=== PATIENT | female | born 1970 ===

== ENCOUNTER 2021-02-09 22:47 | Emergency (ER) | payer SELFPAY ==
[2021-02-10 00:04] LABS: Basophils # (Auto) 0.1 K/mm3 (0.0-0.1); Basophils % (Auto) 0.6 % (0.0-1.8); Eosinophils # (Auto) 0.2 K/mm3 (0.0-0.4); Eosinophils % (Auto) 2.1 % (0.0-4.3); Hematocrit 39.1 % (30.3-42.9); Hemoglobin 13.5 gm/dl (10.1-14.3); Lymphocytes # (Auto) 1.5 K/mm3 (1.2-5.4); Lymphocytes % (Auto) 16.5 % (13.4-35.0); Mean Corpuscular HGB Conc 35 % (30-34); Mean Corpuscular Volume 92 fl (79-97); Monocytes # (Auto) 0.5 K/mm3 (0.0-0.8); Monocytes % (Auto) 5.4 % (0.0-7.3); Platelet Count 163 K/mm3 (140-440); Red Blood Count 4.24 M/mm3 (3.65-5.03)
[2021-02-10 00:27] LABS: Alanine Aminotransferase 16 units/L (7-56); Albumin 4.2 g/dL (3.9-5); BUN/Creatinine Ratio 16; Blood Urea Nitrogen 13 mg/dL (7-17); Calcium 9.5 mg/dL (8.4-10.2); Hemolysis Index 1
[2021-02-10 02:04] LABS: Bacteria,Urine 1+ /HPF (Negative); Bilirubin,Urine NEG (Negative); Blood,Urine SM (Negative); Color,Urine Yellow (Yellow); Protein,Urine <15 mg/dL mg/dL (Negative); Urobilinogen,Urine < 2.0 mg/dL (<2.0)
--- NOTE | 2021-02-10 04:03 | Emergency Department Report ---
ED Abdominal Pain HPI - General Chief Complaint: Nausea/Vomiting/Diarrhea Stated Complaint: DIFF BREATHING Time Seen by Provider: 02/10/21 03:52 Source: patient Mode of arrival: Ambulatory Limitations: Language Barrier - History of Present Illness Initial Comments: Patient is a 51-year-old female who presents emergency room with complaints of shortness of breath, abdominal pain, nausea, vomiting patient states her abdominal pain is a 5 out of 10. Patient states her symptoms started at 10 PM yesterday. Patient states that her symptoms are worsening. Patient states that her abdominal pain started then she had nausea and vomiting and then she became short of breath after vomiting. Patient denies cough. Patient states that her shortness of breath and difficulty breathing have resolved. Patient states she still having abdominal pain and nausea. Patient states her symptoms are better with rest. Patient states her symptoms are worse with exertion and movement. Patient denies fever and chills. Patient denies blood in her vomitus. Patient denies recent travel. Patient denies recent international travel. Patient denies exposure to the novel coronavirus. Patient denies sick contacts. Patient denies fever and chills. Patient denies cough. Patient denies diarrhea. Patient denies coming in contact with anybody with symptoms of the novel coronavirus. Patient's family members at bedside against the patient communicates by sign language. MD Complaint: abdominal pain Location: suprapubic Radiation: none Migration to: no migration Severity scale (0 -10): 5 Quality: stabbing Consistency: constant Improves With: rest Worsens With: movement Associated Symptoms: nausea, vomiting. denies: diarrhea, fever, chills, constipation, dysuria, hematemesis, hematochezia, melena, hematuria, syncope - Related Data Previous Rx's Medication Instructions Recorded Last Taken Type Ciprofloxacin HCl 500 mg PO BID 10 Days #20 tablet 02/10/21 Unknown Rx Ondansetron [Zofran Odt] 4 mg PO Q6HR PRN #20 tab.rapdis 02/10/21 Unknown Rx Allergies Allergy/AdvReac Type Severity Reaction Status Date / Time No Known Allergies Allergy Unverified 02/09/21 23:26 ED Review of Systems ROS: Stated complaint: DIFF BREATHING Other details as noted in HPI Constitutional: denies: chills, fever Eyes: denies: eye pain, eye discharge, vision change ENT: denies: ear pain, throat pain Respiratory: denies: cough, shortness of breath, wheezing Cardiovascular: denies: chest pain, palpitations Endocrine: no symptoms reported Gastrointestinal: as per HPI, abdominal pain, nausea, vomiting. denies: diarrh ea Genitourinary: denies: urgency, dysuria, discharge Musculoskeletal: denies: back pain, joint swelling, arthralgia Skin: denies: rash, lesions Neurological: denies: headache, weakness, paresthesias Psychiatric: denies: anxiety, depression Hematological/Lymphatic: denies: easy bleeding, easy bruising ED Past Medical Hx - Past Medical History Previous Medical History?: Yes Hx Hypertension: Yes Additional medical history: Patient is deaf - Surgical History Past Surgical History?: No - Family History Family history: no significant - Social History Smoking Status: Never Smoker Substance Use Type: None - Medications Home Medications: Home Medications Medication Instructions Recorded Confirmed Last Taken Type Ciprofloxacin HCl 500 mg PO BID 10 Days #20 tablet 02/10/21 Unknown Rx Ondansetron [Zofran Odt] 4 mg PO Q6HR PRN #20 tab.rapdis 02/10/21 Unknown Rx ED Physical Exam - General Limitations: No Limitations General appearance: alert, in no apparent distress - Head Head exam: Present: atraumatic, normocephalic - Eye Eye exam: Present: normal appearance - ENT ENT exam: Present: mucous membranes moist - Neck Neck exam: Present: normal inspection - Respiratory Respiratory exam: Present: normal lung sounds bilaterally. Absent: respiratory distress - Cardiovascular Cardiovascular Exam: Present: regular rate, normal rhythm. Absent: systolic murmur, diastolic murmur, rubs, gallop - GI/Abdominal GI/Abdominal exam: Present: soft, tenderness (Suprapubic tenderness), normal bowel sounds - Rectal Rectal exam: Present: deferred - Extremities Exam Extremities exam: Present: normal inspection - Back Exam Back exam: Present: normal inspection - Neurological Exam Neurological exam: Present: alert, oriented X3 - Psychiatric Psychiatric exam: Present: normal affect, normal mood - Skin Skin exam: Present: warm, dry, intact, normal color. Absent: rash ED Course Vital Signs 02/09/21 02/10/21 23:27 04:04 Temperature 98.3 F Pulse Rate 86 Respiratory 12 16 Rate Blood Pressure 169/94 O2 Sat by Pulse 99 Oximetry - Reevaluation(s) Reevaluation #1: Patient states she is feeling much better. Patient denies nausea vomiting. Patient dates the pain is resolved. Patient denies shortness of breath. I discussed all results and clinical findings with patient. I discussed plan of care with patient. Patient agrees with plan of care. Patient is stable for discharge. Patient will be discharged home. Patient given discharge instructions. Patient voiced understanding of discharge instructions. 02/10/21 05:50 ED Medical Decision Making - Lab Data Result diagrams: 02/09/21 23:31 02/09/21 23:31 - Radiology Data Radiology results: report reviewed CT ABDOMEN AND PELVIS WITHOUT AND WITH CONTRAST INDICATION / CLINICAL INFORMATION: abd pain. TECHNIQUE: Axial CT images were obtained through the abdomen and pelvis before and after 100 cc of Omnipaque [address] scans at this location are performed using CT dose reduction for ALARA by means of automated exposure control. COMPARISON: None available. FINDINGS: LOWER CHEST: There is a 11 mm nodule in the inferior aspect of the left breast LIVER: No significant abnormality. GALLBLADDER: Cholelithiasis BILE DUCTS: No significant abnormality. PANCREAS: No significant abnormality. SPLEEN: No significant abnormality. ADRENALS: No significant abnormality. RIGHT KIDNEY and URETER: No significant abnormality. LEFT KIDNEY and URETER: No significant abnormality. STOMACH and SMALL BOWEL: No significant abnormality. COLON: There are scattered diverticula in the colon APPENDIX: No significant abnormality. PERITONEUM: No free fluid. No free air. No fluid collection. LYMPH NODES: No significant adenopathy. AORTA and ARTERIES: No significant abnormality. IVC and VEINS: No significant abnormality. URINARY BLADDER: No significant abnormality. REPRODUCTIVE ORGANS: No significant abnormality. ADDITIONAL FINDINGS: None. SKELETAL SYSTEM: No acute abnormality IMPRESSION: 1. There is cholelithiasis. 2. Incidental note is made of an 11 mm nodule in the inferior aspect of the left breast. This is indeterminate. There is no record of breast imaging at this institution. In the absence of prior breast imaging, dedicated diagnostic breast imaging is recommended with mammography and ultrasound - Medical Decision Making Patient is a 51-year-old female who presents emergency room for abdominal pain, shortness of breath, nausea, vomiting. Patient shortness of breath resolved prior to coming to the emergency room. Patient chest pain is suprapubic and lower abdomen. Patient had labs done which were essentially unremarkable except for UTI. Patient had a CT scan of the abdomen rule out acute process and the CT was positive for cholelithiasis and breast nodule. Patient had no other acute findings. Patient given IV fluids and IV Zofran in the ER. Patient responded well to treatment. Patient discharged home essentially asymptomatic. Patient not require further emergency medical service. Patient not require inpatient services. Patient stable for discharge. Patient given oral antibiotics for the UTI. Patient given Zofran for the nausea vomiting. - Differential Diagnosis UTI, kidney stone, nausea, vomiting, shortness of breath. Critical care attestation.: If time is entered above; I have spent that time in minutes in the direct care of this critically ill patient, excluding procedure time. ED Disposition Clinical Impression: Breast nodule, Shortness of breath, Gastroenteritis UTI (urinary tract infection) Qualifiers: Urinary tract infection type: acute cystitis Hematuria presence: with hematuria Qualified Code(s): N30.01 - Acute cystitis with hematuria Nausea & vomiting Qualifiers: Vomiting type: unspecified Vomiting Intractability: non-intractable Qualified Code(s): R11.2 - Nausea with vomiting, unspecified Cholelithiasis Qualifiers: Cholelithiasis location: gallbladder Cholecystitis presence: without marlon cystitis Biliary obstruction: without biliary obstruction Qualified Code(s): K80.20 - Calculus of gallbladder without cholecystitis without obstruction Disposition: DC- TO HOME OR SELFCARE Is pt being admited?: No Does the pt Need Aspirin: No Condition: Stable Instructions: Cholelithiasis, Viral Gastroenteritis, Adult, [id number], Urinary Tract Infection, Adult, [id number], Nausea and Vomiting, Adult Additional Instructions: Patient to follow-up with primary care in 2 to 3 days. Patient to follow-up with general surgery and [facility] in 2 to 3 days. Patient to rest. Patient to increase water. Patient to eat a brat diet. Patient eat a low-fat diet.. Patient to take Tylenol or ibuprofen as needed for pain. Patient to take meds as directed. Patient to return to the ER if condition worsens, changes or new symptoms arise. Prescriptions: Ciprofloxacin HCl 500 mg PO BID 10 Days #20 tablet Ondansetron [Zofran Odt] 4 mg PO Q6HR PRN #20 tab.rapdis PRN Reason: Nausea And Vomiting Referrals: PRIMARY CARE,MD [Primary Care Provider] - 2-3 Days ORLIN DOWNING DO [Staff Physician] - 2-3 Days Time of Disposition: 05:56
[2021-02-10] MEDS ORDERED: ONDANSETRON 4 MG/2 ML INJ IV ONE (04:04)
[2021-02-10] MEDS ORDERED: SODIUM CHLORIDE 0.9% 1000 ML 1,000 ML IV ONE (04:04)
--- NOTE | 2021-02-10 05:10 | Cat Scan Report ---
CT ABDOMEN AND PELVIS WITHOUT AND WITH CONTRAST INDICATION / CLINICAL INFORMATION: abd pain. TECHNIQUE: Axial CT images were obtained through the abdomen and pelvis before and after 100 cc of Omnipaque [address] scans at this location are performed using CT dose reduction for ALARA by means of automated exposure control. COMPARISON: None available. FINDINGS: LOWER CHEST: There is a 11 mm nodule in the inferior aspect of the left breast LIVER: No significant abnormality. GALLBLADDER: Cholelithiasis BILE DUCTS: No significant abnormality. PANCREAS: No significant abnormality. SPLEEN: No significant abnormality. ADRENALS: No significant abnormality. RIGHT KIDNEY and URETER: No significant abnormality. LEFT KIDNEY and URETER: No significant abnormality. STOMACH and SMALL BOWEL: No significant abnormality. COLON: There are scattered diverticula in the colon APPENDIX: No significant abnormality. PERITONEUM: No free fluid. No free air. No fluid collection. LYMPH NODES: No significant adenopathy. AORTA and ARTERIES: No significant abnormality. IVC and VEINS: No significant abnormality. URINARY BLADDER: No significant abnormality. REPRODUCTIVE ORGANS: No significant abnormality. ADDITIONAL FINDINGS: None. SKELETAL SYSTEM: No acute abnormality IMPRESSION: 1. There is cholelithiasis. 2. Incidental note is made of an 11 mm nodule in the inferior aspect of the left breast. This is inde terminate. There is no record of breast imaging at this institution. In the absence of prior breast i maging, dedicated diagnostic breast imaging is recommended with mammography and ultrasound Signer Name: Michael Higuera MD Signed: 02/10/2021 5:06 AM Workstation Name: [id number]
[2021-02-10 07:03] VITALS: BP 133/74
== END 2021-02-10 07:04 | disposition home or self-care (01) ==
LOC: ED 22:47
DX: K80.20 Calculus of gallbladder without cholecystitis without obstruction (principal); N39.0 Urinary tract infection, site not specified; R06.02 Shortness of breath; K52.9 Noninfective gastroenteritis and colitis, unspecified; R11.2 Nausea with vomiting, unspecified; N63.0 Unspecified lump in unspecified breast; I10 Essential (primary) hypertension; Z79.899 Other long term (current) drug therapy
CPT/HCPCS: 36415; 74178; 80053; 81001; 85025; 87086; 96361; 96374; 99284; J2405; J7030; Q9967